=== PATIENT | male | born 1980 | race African-American/Black ===

== ENCOUNTER → 2019-03-05 15:22 | Outpatient (CLI) | payer BC, SELFPAY ==
--- NOTE | 2019-03-05 15:23 | XR_ITS ---
PROCEDURE: XR SHOULDER RT 1V CLINICAL INDICATION: Shoulder pain/ AC seperation COMPARISON: XR SHOULDER RT MIN 2V from 03/04/2019 FINDINGS: Axillary view obtained shows no evidence glenohumeral dislocation. Recent exam of 03/04/2019 demonstrated grade 3 AC separation. This is not adequately evaluated on this single image. IMPRESSION: Negative for glenohumeral dislocation Dictated by: Neel Carmona MD 03/05/2019 16:36 Signed by: <Electronically signed by Neel Carmona MD in [place]> 03/05/2019 16:36
== END ==
PROVIDERS: Visit Provider Orthopaedic Surgery
DX: S43.101A Unspecified dislocation of right acromioclavicular joint, initial encounter (principal)
CPT/HCPCS: 73020